=== PATIENT | male | born 1955 | race Caucasian/White ===

== ENCOUNTER → 2023-12-31 | Outpatient (CLI) | payer MEDICARE ==
[2023-12-31 16:21] LABS: ALBUMIN 3.5 g/dL (3.5-5.0); BILIRUBIN,TOTAL 0.9 mg/dL (0.2-1.0); CREATININE 1.1 mg/dL (0.5-1.5); TOTAL PROTEIN, SERUM 6.8 g/dL (6.0-8.3)
== END | disposition home or self-care (01) ==
LOC: LAB 12:56
PROVIDERS: ATTEND Student in an Organized Health Care Education/Training Program
DX: I50.20 Unspecified systolic (congestive) heart failure (principal)
CPT/HCPCS: 36415; 80053; 83735